=== PATIENT | male | born 1950 | race Caucasian/White ===

== ENCOUNTER → 2024-10-30 | Outpatient (CLI) | payer MEDICARE, SELFPAY ==
--- NOTE | 2024-10-30 10:44 | WOUNDNOTE ---
Pt had been referred to see this nurse for ostomy care from [facility] in [place]. Pt states he has a history of bladder cancer and had surgery approx 2 months ago. 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 pt had previously had a wound lateral to the stoma. pt's son present in room and showed this nurse a photo. pt removed appliance. wound is now healed. home health care nurse had been assisting with wound, but son states the last visit was their last one. son states they were using a collagen dressing with hydrocolloid and then placing the appliance. pt is currently using a 2 piece convex Ethan appliance with a paste ring and stomal belt. Pt would like to continue with the current appliance. pt and son appreciative of visit and aware to call if further issues arise. pt and son feel quite comfortable with appliance changes and pt was able to place the new appliance independently.
== END | disposition home or self-care (01) ==
LOC: ET 09:54
PROVIDERS: PCP Family Medicine; Referring Provider Urology; Visit Provider Urology
DX: Z93.6 Other artificial openings of urinary tract status (principal)
CPT/HCPCS: 99211; G0463